=== PATIENT | female | born 1990 | race Caucasian/White ===

== ENCOUNTER 2020-07-26 10:15 | Inpatient (IN) | payer MEDICAID, SELFPAY ==
[~2020-07-26] VITALS: Ht 154.9 cm; Wt 65.8 kg
[2020-07-26 10:15] VITALS: BP_SYST 109
[2020-07-26] MEDS ORDERED: HALOPERIDOL LACTATE 5 MG/ML VIAL IVP ONE (10:30)
[2020-07-26] MEDS ORDERED: MORPHINE 4 MG/ML INJ. SYRINGE IVP ONE (10:30)
[2020-07-26] MEDS ORDERED: NACL 0.9% 2,000 ML IV ONE (11:00)
[2020-07-26 11:15] LABS: BASOPHILS % (AUTO) 0.3 % (0.0-2.0); EOSINOPHILS % (AUTO) 0.1 % (0.0-4.0); HEMATOCRIT 36.6 % (36-48); HEMOGLOBIN 11.7 g/dL (12.0-16.0); LYMPHOCYTES # (AUTO) 0.8 K/uL (1.0-5.5); LYMPHOCYTES % (AUTO) 6.3 % (20.5-51.5); MEAN CORPUSCULAR HEMOGLOBIN 24 pg (27-31); MEAN CORPUSCULAR HGB CONC 32 % (32-36); MEAN CORPUSCULAR VOLUME 74 fL (79.0-98.0); MONOCYTES # (AUTO) 0.5 K/uL (0.0-1.0); MONOCYTES % (AUTO) 3.4 % (1.7-9.3); NEUTROPHILS % (AUTO) 89.9 % (40.0-70.0); PLATELET COUNT (AUTO) 273 K/uL (130-430); RED BLOOD CELL COUNT(AUTO) 4.97 MIL/uL (4.2-6.2); RED CELL DISTRIBUTION WIDTH 17.5 % (9.0-15.0); WHITE BLOOD COUNT (AUTO) 13.4 K/uL (4.8-10.8)
[2020-07-26 11:21] LABS: ANION GAP 10 (5-15); CALCIUM 8.8 mg/dL (8.4-11.0); CHLORIDE 101 mmol/L (98-107); GLUCOSE 148 mg/dL (70-99); POTASSIUM 3.2 mmol/L (3.5-5.1); SODIUM SERUM 137 mmol/L (136-145); UREA NITROGEN, BLOOD 16 mg/dL (8-21)
[2020-07-26 11:22] LABS: GFR AFRICAN AMERICAN 96 mL/min (>90)
[2020-07-26 11:23] LABS: PROTHROMBIN TIME 10.5 SECS (9.5-12.5)
[2020-07-26 11:32] LABS: ALANINE AMINOTRANSFERASE 32 U/L (12-78); ALBUMIN 3.6 g/dL (3.4-4.8); ASPARTATE AMINOTRANSFERASE 19 U/L (10-37); BILIRUBIN,DIRECT 0.1 mg/dL (0.0-0.3); HCG,QUANTITATIVE 1 mIU/ML (0-6); LIPASE 46 U/L (73-393); TOTAL BILIRUBIN 0.5 mg/dL (0.0-1.0)
[2020-07-26 13:33] LABS: BILIRUBIN,URINE NEGATIVE (NEGATIVE); BLOOD, URINE 1+ (NEGATIVE); CLARITY/URINE SL CLOUDY (CLEAR); COLOR,URINE YELLOW (YELLOW); GLUCOSE,URINE NEGATIVE (NEGATIVE); KETONES,URINE 1+ (NEGATIVE); LEUKOCYTE ESTERASE ,URINE 1+ (NEGATIVE); NITRITE, URINE POSITIVE (NEGATIVE); PH,URINE 6.5 (5.0-8.0); PROTEIN URINE TRACE (NEGATIVE)
[2020-07-26 13:53] LABS: BACTERIA,URINE MANY /HPF (None Seen); CALCIUM OXALATE CRYSTALS,UR 0-10 /HPF (None Seen)
[2020-07-26] MEDS ORDERED: cefTRIAXone 1 GM VIAL ONE (13:59)
[2020-07-26] MEDS ORDERED: cefTRIAXone 1 GM in D5W 50 ML IV ONE (14:00)
[2020-07-26] MEDS ORDERED: NACL 0.9% 1,000 ML IV ONE (15:45)
[2020-07-26] MEDS ORDERED: DOXYCYCLINE HYCLATE 100 MG in D5W 100 ML IV ONE (15:45)
[2020-07-26] MEDS ORDERED: metroNIDAZOLE 500 mg/NS 100 ML IV ONE (15:45)
[2020-07-26] MEDS ORDERED: NOREPINEPHRINE BITARTRATE 32 MG in NS 218 ML IV PRN (15:45)
[2020-07-26] MEDS ORDERED: DOXYCYCLINE HYCLATE 100 MG VIAL IV ONE (15:51)
[2020-07-26] MEDS ORDERED: NOREPINEPHRINE 4 MG/4 ML VIAL IV ONE (15:52)
[2020-07-26 16:02] LABS: BARBITURATE, URINE NEGATIVE (NEG <=200); URINE AMPHETAMINE POSITIVE (NEG <=500)
[2020-07-26 16:03] LABS: BENZODIAZEPINE, URINE NEGATIVE (NEG <=150); CANNABINOID, URINE NEGATIVE (NEG <=50); COCAINE, URINE NEGATIVE (NEG <=150); METHAMPHETAMINES SCREEN,URINE POSITIVE (NEG <=500); OPIATE, URINE NEGATIVE (NEG <=100); PHENCYCLIDINE SCREEN,URINE NEGATIVE (NEG <=25); UR TRICYCLIC ANTIDEPRESSANTS NEGATIVE (NEG <=300); URINE METHADONE NEGATIVE (NEG <=200); URINE OXYCODONE SCREEN NEGATIVE (NEG <=100); URINE PROPOXYPHENE SCREEN NEGATIVE (NEG <=300)
[2020-07-26] MEDS: NACL 0.9% 1,000 ML IV SCH (16:47)
[2020-07-26 19:00] VITALS: BP_SYST 94
[2020-07-26 20:00] VITALS: BP_SYST 100
[2020-07-26] MEDS: DOXYCYCLINE HYCLATE 100 MG in D5W 100 ML IV SCH (20:09)
[2020-07-26] MEDS ORDERED: PIPERACILLIN/TAZOBACTAM 4.5 GM/VIAL (ZOSYN) IV ONE (20:11)
[2020-07-26] MEDS: PIPERACILLIN/TAZO 4.5 GM in NS 100 ML IV SCH (20:18)
[2020-07-26 21:00] VITALS: BP_SYST 104
[2020-07-26 22:00] VITALS: BP_SYST 97
[2020-07-26 23:00] VITALS: BP_SYST 89
[2020-07-27] VITALS (7 sets, daily range): BP systolic 90–101
[2020-07-27] MEDS ORDERED: NOREPINEPHRINE 4 MG/4 ML VIAL IV ONE ×2 (01:27→11:52)
[2020-07-27] MEDS: NACL 0.9% 1,000 ML IV SCH ×6 (02:15→22:17)
[2020-07-27 04:54] LABS: BASOPHILS % (AUTO) 0.2 % (0.0-2.0); EOSINOPHILS % (AUTO) 0.1 % (0.0-4.0); HEMATOCRIT 33.8 % (36-48); HEMOGLOBIN 10.6 g/dL (12.0-16.0); LYMPHOCYTES # (AUTO) 1.7 K/uL (1.0-5.5); LYMPHOCYTES % (AUTO) 9.6 % (20.5-51.5); MEAN CORPUSCULAR HEMOGLOBIN 24 pg (27-31); MEAN CORPUSCULAR HGB CONC 31 % (32-36); MEAN CORPUSCULAR VOLUME 75 fL (79.0-98.0); MONOCYTES # (AUTO) 0.9 K/uL (0.0-1.0); MONOCYTES % (AUTO) 5.4 % (1.7-9.3); NEUTROPHILS # (AUTO) 14.8 K/uL (1.8-7.7); NEUTROPHILS % (AUTO) 84.7 % (40.0-70.0); PLATELET COUNT (AUTO) 281 K/uL (130-430); RED CELL DISTRIBUTION WIDTH 17.4 % (9.0-15.0); WHITE BLOOD COUNT (AUTO) 17.5 K/uL (4.8-10.8)
[2020-07-27 05:32] LABS: CALCIUM 7.2 mg/dL (8.4-11.0); CREATININE 0.95 mg/dL (0.55-1.30); POTASSIUM 3.3 mmol/L (3.5-5.1); THYROID STIMULATING HORMONE 2.67 uIu/mL (0.36-3.74)
[2020-07-27] MEDS ORDERED: PIPERACILLIN/TAZOBACTAM 4.5 GM/VIAL (ZOSYN) IV ONE ×3 (06:26→22:25)
[2020-07-27] MEDS: PIPERACILLIN/TAZO 4.5 GM in NS 100 ML IV SCH ×3 (06:26→22:27)
[2020-07-27] MEDS: DOXYCYCLINE HYCLATE 100 MG in D5W 100 ML IV SCH ×2 (10:15→21:23)
[2020-07-27] MEDS ORDERED: NOREPINEPHRINE BITARTRATE 32 MG in D5W 218 ML IV PRN (11:54)
[2020-07-27] MEDS ORDERED: DOXYCYCLINE HYCLATE 100 MG VIAL IV ONE (21:13)
[2020-07-27] MEDS ORDERED: NOREPINEPHRINE BITARTRATE 4 MG in NS 246 ML IV PRN (21:45)
[2020-07-28] MEDS ORDERED: PIPERACILLIN/TAZOBACTAM 4.5 GM/VIAL (ZOSYN) IV ONE (05:53)
[2020-07-28] MEDS: NACL 0.9% 1,000 ML IV SCH ×3 (05:59→17:46)
[2020-07-28] MEDS: PIPERACILLIN/TAZO 4.5 GM in NS 100 ML IV SCH ×3 (06:03→18:20)
[2020-07-28 07:44] LABS: BASOPHILS % (AUTO) 0.2 % (0.0-2.0); EOSINOPHILS % (AUTO) 0.1 % (0.0-4.0); HEMATOCRIT 30.6 % (36-48); HEMOGLOBIN 9.8 g/dL (12.0-16.0); LYMPHOCYTES # (AUTO) 0.7 K/uL (1.0-5.5); LYMPHOCYTES % (AUTO) 5.6 % (20.5-51.5); MEAN CORPUSCULAR HEMOGLOBIN 24 pg (27-31); MEAN CORPUSCULAR HGB CONC 32 % (32-36); MEAN CORPUSCULAR VOLUME 74 fL (79.0-98.0); MONOCYTES # (AUTO) 1.2 K/uL (0.0-1.0); MONOCYTES % (AUTO) 9.6 % (1.7-9.3); NEUTROPHILS # (AUTO) 10.1 K/uL (1.8-7.7); NEUTROPHILS % (AUTO) 84.5 % (40.0-70.0); PLATELET COUNT (AUTO) 187 K/uL (130-430); RED BLOOD CELL COUNT(AUTO) 4.12 MIL/uL (4.2-6.2); RED CELL DISTRIBUTION WIDTH 17.3 % (9.0-15.0)
[2020-07-28 07:48] LABS: CALCIUM 7.4 mg/dL (8.4-11.0); CREATININE 0.83 mg/dL (0.55-1.30); POTASSIUM 3.2 mmol/L (3.5-5.1)
[2020-07-28] MEDS ORDERED: DOXYCYCLINE HYCLATE 100 MG VIAL IV ONE (08:57)
[2020-07-28] MEDS: DOXYCYCLINE HYCLATE 100 MG in D5W 100 ML IV SCH ×2 (10:27→22:10)
[2020-07-28 13:20] VITALS: BP_SYST 104
[2020-07-28 16:00] VITALS: BP_SYST 103
[2020-07-28] MEDS ORDERED: ONDANSETRON HCL 4 MG/2 ML VIAL IVP PRN (16:30)
[2020-07-28] MEDS ORDERED: ACETAMINOPHEN 325 MG TABLET PO PRN ×2 (16:30→18:00)
[2020-07-28 20:30] VITALS: BP_SYST 103
[2020-07-28 23:06] LABS: CHLAMYDIA TRACHOMATIS NAA Negative (Negative); NEISSERIA GONORRHOEAE NAA Negative (Negative)
[2020-07-29] MEDS: NACL 0.9% 1,000 ML IV SCH ×3 (00:06→20:40)
[2020-07-29 02:06] LABS: HEPATITIS A AB, IgM Negative (Negative); HEPATITIS B CORE AB, IgM Negative (Negative); HEPATITIS B SURFACE AG Negative (Negative)
[2020-07-29] MEDS: PIPERACILLIN/TAZO 4.5 GM in NS 100 ML IV SCH ×3 (05:07→21:15)
[2020-07-29] MEDS ORDERED: INSULIN NPH/REGULAR 70-30, 100 UNITS/ML, 10 ML VIAL ONE (05:49)
[2020-07-29] MEDS: DOXYCYCLINE HYCLATE 100 MG in D5W 100 ML IV SCH ×2 (08:10→20:39)
[2020-07-29 08:54] VITALS: BP_SYST 114
[2020-07-29 12:35] VITALS: BP_SYST 107
[2020-07-29 16:23] VITALS: BP_SYST 112
[2020-07-29 20:00] VITALS: BP_SYST 118
[2020-07-29] MEDS ORDERED: MORPHINE 2 MG/ML INJ. SYRINGE IVP PRN (20:45)
[2020-07-29] MEDS: MORPHINE 2 MG/ML INJ. SYRINGE IVP PRN (21:20)
[2020-07-29 23:11] LABS: CHLAMYDIA TRACHOMATIS NAA Negative (Negative); NEISSERIA GONORRHOEAE NAA Negative (Negative)
[2020-07-30 02:00] VITALS: BP_SYST 116
[2020-07-30] MEDS: MORPHINE 2 MG/ML INJ. SYRINGE IVP PRN ×4 (02:14→20:05)
[2020-07-30] MEDS: PIPERACILLIN/TAZO 4.5 GM in NS 100 ML IV SCH ×2 (06:08→13:24)
[2020-07-30 07:04] LABS: BASOPHILS % (AUTO) 0.6 % (0.0-2.0); EOSINOPHILS # (AUTO) 0.1 K/uL (0.0-0.4); HEMATOCRIT 30.9 % (36-48); HEMOGLOBIN 9.9 g/dL (12.0-16.0); LYMPHOCYTES % (AUTO) 17.6 % (20.5-51.5); MEAN CORPUSCULAR HEMOGLOBIN 24 pg (27-31); MEAN CORPUSCULAR HGB CONC 32 % (32-36); MEAN CORPUSCULAR VOLUME 74 fL (79.0-98.0); MONOCYTES # (AUTO) 0.7 K/uL (0.0-1.0); MONOCYTES % (AUTO) 11.3 % (1.7-9.3); NEUTROPHILS # (AUTO) 4.1 K/uL (1.8-7.7); NEUTROPHILS % (AUTO) 68.5 % (40.0-70.0); PLATELET COUNT (AUTO) 219 K/uL (130-430); RED BLOOD CELL COUNT(AUTO) 4.19 MIL/uL (4.2-6.2); RED CELL DISTRIBUTION WIDTH 17.2 % (9.0-15.0)
[2020-07-30 07:57] LABS: CALCIUM 8.4 mg/dL (8.4-11.0); CREATININE 0.61 mg/dL (0.55-1.30); POTASSIUM 3.2 mmol/L (3.5-5.1)
[2020-07-30 08:00] VITALS: BP_SYST 107
[2020-07-30] MEDS: DOXYCYCLINE HYCLATE 100 MG in D5W 100 ML IV SCH ×2 (08:12→19:59)
[2020-07-30] MEDS: NACL 0.9% 1,000 ML IV SCH (11:18)
[2020-07-30 12:25] VITALS: BP_SYST 113
[2020-07-30 16:05] VITALS: BP_SYST 109
[2020-07-30] MEDS ORDERED: POTASSIUM CHLORIDE 20 MEQ TAB.PRT.SR PO ONE (16:45)
[2020-07-30 20:01] VITALS: BP_SYST 110
[2020-07-31] MEDS: PIPERACILLIN/TAZO 4.5 GM in NS 100 ML IV SCH ×4 (00:24→22:15)
[2020-07-31] MEDS: NACL 0.9% 1,000 ML IV SCH ×2 (00:28→14:00)
[2020-07-31] MEDS: MORPHINE 2 MG/ML INJ. SYRINGE IVP PRN ×4 (00:40→22:22)
[2020-07-31 01:19] VITALS: BP_SYST 110
[2020-07-31 07:53] LABS: BASOPHILS % (AUTO) 0.5 % (0.0-2.0); EOSINOPHILS # (AUTO) 0.1 K/uL (0.0-0.4); EOSINOPHILS % (AUTO) 2.3 % (0.0-4.0); HEMATOCRIT 29.2 % (36-48); HEMOGLOBIN 9.6 g/dL (12.0-16.0); LYMPHOCYTES # (AUTO) 1.3 K/uL (1.0-5.5); LYMPHOCYTES % (AUTO) 21.4 % (20.5-51.5); MEAN CORPUSCULAR HEMOGLOBIN 24 pg (27-31); MEAN CORPUSCULAR HGB CONC 33 % (32-36); MEAN CORPUSCULAR VOLUME 73 fL (79.0-98.0); MONOCYTES # (AUTO) 0.8 K/uL (0.0-1.0); MONOCYTES % (AUTO) 13.2 % (1.7-9.3); NEUTROPHILS # (AUTO) 3.8 K/uL (1.8-7.7); NEUTROPHILS % (AUTO) 62.6 % (40.0-70.0); PLATELET COUNT (AUTO) 249 K/uL (130-430); RED CELL DISTRIBUTION WIDTH 16.8 % (9.0-15.0); WHITE BLOOD COUNT (AUTO) 6.1 K/uL (4.8-10.8)
[2020-07-31 08:00] VITALS: BP_SYST 117
[2020-07-31 08:24] LABS: CALCIUM 8.1 mg/dL (8.4-11.0); CREATININE 0.62 mg/dL (0.55-1.30); POTASSIUM 3.7 mmol/L (3.5-5.1)
[2020-07-31] MEDS: DOXYCYCLINE HYCLATE 100 MG CAPSULE PO SCH ×2 (10:34→21:00)
[2020-07-31 12:00] VITALS: BP_SYST 112
[2020-07-31 16:55] VITALS: BP_SYST 107
[2020-08-01 00:54] VITALS: BP_SYST 113
[2020-08-01] MEDS: MORPHINE 2 MG/ML INJ. SYRINGE IVP PRN ×3 (01:46→14:32)
[2020-08-01] MEDS: NACL 0.9% 1,000 ML IV SCH (05:22)
[2020-08-01] MEDS: PIPERACILLIN/TAZO 4.5 GM in NS 100 ML IV SCH ×2 (06:41→14:30)
[2020-08-01 07:51] LABS: BASOPHILS % (AUTO) 0.4 % (0.0-2.0); EOSINOPHILS # (AUTO) 0.2 K/uL (0.0-0.4); EOSINOPHILS % (AUTO) 2.4 % (0.0-4.0); HEMATOCRIT 30.1 % (36-48); HEMOGLOBIN 9.9 g/dL (12.0-16.0); LYMPHOCYTES % (AUTO) 15.8 % (20.5-51.5); MEAN CORPUSCULAR HEMOGLOBIN 24 pg (27-31); MEAN CORPUSCULAR HGB CONC 33 % (32-36); MEAN CORPUSCULAR VOLUME 73 fL (79.0-98.0); MONOCYTES # (AUTO) 0.9 K/uL (0.0-1.0); MONOCYTES % (AUTO) 14.3 % (1.7-9.3); NEUTROPHILS # (AUTO) 4.4 K/uL (1.8-7.7); NEUTROPHILS % (AUTO) 67.1 % (40.0-70.0); PLATELET COUNT (AUTO) 263 K/uL (130-430); RED BLOOD CELL COUNT(AUTO) 4.13 MIL/uL (4.2-6.2); RED CELL DISTRIBUTION WIDTH 16.3 % (9.0-15.0); WHITE BLOOD COUNT (AUTO) 6.5 K/uL (4.8-10.8)
[2020-08-01 08:00] VITALS: BP_SYST 121
[2020-08-01 08:12] LABS: CALCIUM 7.5 mg/dL (8.4-11.0); CREATININE 0.79 mg/dL (0.55-1.30); POTASSIUM 3.8 mmol/L (3.5-5.1)
[2020-08-01] MEDS: DOXYCYCLINE HYCLATE 100 MG CAPSULE PO SCH (11:45)
[2020-08-01 12:00] VITALS: BP_SYST 122
[2020-08-01 16:00] VITALS: BP_SYST 114
[2020-08-01 20:10] VITALS: BP_SYST 114
== END 2020-08-01 21:50 | disposition home or self-care (01) | DRG 871 ==
LOC: SED 10:15 → SIC 16:03 → STU 07-28 12:47 → SMU 07-30 16:29
PROVIDERS: ADMIT Internal Medicine; ATTEND Internal Medicine
DX: A41.9 Sepsis, unspecified organism (principal); R65.21 Severe sepsis with septic shock; N39.0 Urinary tract infection, site not specified; B96.20 Unspecified Escherichia coli [E. coli] as the cause of diseases classified elsewhere; I95.9 Hypotension, unspecified; N73.9 Female pelvic inflammatory disease, unspecified; F19.10 Other psychoactive substance abuse, uncomplicated; Z20.822 Contact with and (suspected) exposure to COVID-19; F15.129 Other stimulant abuse with intoxication, unspecified; N70.93 Salpingitis and oophoritis, unspecified
CPT/HCPCS: 36415; 71045; 76376; 76700-TC; 76856-TC; 80048; 80074; 80076; 80307; 81000-TC; 83605; 83690-TC; 84443-TC; 84484; 84702-TC; 85025; 85610-TC; 86886; 86900; 86901; 87040-TC; 87081-TC; 87086; 87210-TC; 87491; 87591; 93005; 96361; 96365; 96367; 96375; 97116-GP; 99291; G0378; J0696; J1630; J1815; J2270; J2405; J2543; J3490; J7030; J7050; J7060; J7120; Q9967; U0003

== ENCOUNTER 2022-09-04 22:08 | Emergency (ER) | payer MEDICAID ==
[~2022-09-04] VITALS: Ht 154.9 cm; Wt 66.2 kg
[2022-09-04 22:40] VITALS: BP_SYST 118
[2022-09-04] MEDS ORDERED: ALBMDI INH (23:47)
--- NOTE | 2022-09-05 | NUR ---
Patient was offered a hand wrap and bacitracin after suture removal. Patient refused and left.
--- NOTE | 2022-09-05 00:02 | NUR ---
Sutures removed by Dr. Wang Pt DC per MDs order DC instructions given to pt Pt verbalized understandings [id number] VSS Able to make needs known Pt advised to wait in waiting room for clinical social worker so Skilled Nursing placement Pt exited ED in stable gait
== END 2022-09-05 00:01 | disposition home or self-care (01) ==
LOC: SED 22:08
DX: Z48.02 Encounter for removal of sutures (principal); Z76.0 Encounter for issue of repeat prescription; Z79.899 Other long term (current) drug therapy
CPT/HCPCS: 99281

== ENCOUNTER 2024-05-14 09:36 | Emergency (ER) | payer MEDICAID, OTHER ==
[~2024-05-14] VITALS: Ht 154.9 cm; Wt 54.4 kg
[~2024-05-14 09:36] MED LIST: ALBMDI INH
[2024-05-14 09:53] VITALS: BP_SYST 114; PULSE 89; RESP 20; TEMP 97.9; O2SAT 100
[2024-05-14 10:16] LABS: BASOPHILS % (AUTO) 0.2 % (0.0-2.0); EOSINOPHILS # (AUTO) 0.3 K/uL (0.0-0.4); EOSINOPHILS % (AUTO) 4.1 % (0.0-4.0); HEMATOCRIT 34.3 % (36-48); HEMOGLOBIN 11.1 g/dL (12.0-16.0); LYMPHOCYTES # (AUTO) 0.8 K/uL (1.0-5.5); LYMPHOCYTES % (AUTO) 12.6 % (20.5-51.5); MEAN CORPUSCULAR HEMOGLOBIN 25 pg (27-31); MEAN CORPUSCULAR HGB CONC 32 % (32-36); MEAN CORPUSCULAR VOLUME 77 fL (79.0-98.0); MONOCYTES # (AUTO) 0.7 K/uL (0.0-1.0); MONOCYTES % (AUTO) 11.3 % (1.7-9.3); NEUTROPHILS # (AUTO) 4.6 K/uL (1.8-7.7); NEUTROPHILS % (AUTO) 71.8 % (40.0-70.0); PLATELET COUNT (AUTO) 233 K/uL (130-430); RED BLOOD CELL COUNT(AUTO) 4.45 MIL/uL (4.2-6.2); RED CELL DISTRIBUTION WIDTH 17.5 % (9.0-15.0); WHITE BLOOD COUNT (AUTO) 6.5 K/uL (4.8-10.8)
[2024-05-14 10:30] LABS: SERUM HCG (QUALITATIVE) NEGATIVE (NEGATIVE)
[2024-05-14 10:33] LABS: ALBUMIN 2.8 g/dL (3.4-4.8); CALCIUM 8.4 mg/dL (8.4-11.0); CREATININE 0.97 mg/dL (0.55-1.30); POTASSIUM 4.4 mmol/L (3.5-5.1); TOTAL BILIRUBIN 0.2 mg/dL (0.0-1.0); TOTAL PROTEIN, SERUM 6.3 g/dL (6.4-8.3)
[2024-05-14 10:35] LABS: BILIRUBIN,DIRECT 0.1 mg/dL (0.0-0.3)
[2024-05-14] MEDS ORDERED: KETOROLAC TROMETHAMINE 30 MG VIAL IM ONE (10:45)
[2024-05-14 11:04] LABS: ALANINE AMINOTRANSFERASE 17 U/L (12-78); ALBUMIN 2.9 g/dL (3.4-4.8); ASPARTATE AMINOTRANSFERASE 15 U/L (10-37); BILIRUBIN,DIRECT 0.1 mg/dL (0.0-0.3); LIPASE 25 U/L (16-77); TOTAL BILIRUBIN 0.2 mg/dL (0.0-1.0); TOTAL PROTEIN, SERUM 6.3 g/dL (6.4-8.3)
[2024-05-14 11:05] LABS: ALCOHOL, BLOOD < 3 mg/dL (<10)
[2024-05-14 11:15] LABS: BILIRUBIN,URINE NEGATIVE (NEGATIVE); BLOOD, URINE 3+ (NEGATIVE); COLOR,URINE YELLOW (YELLOW); GLUCOSE,URINE NEGATIVE (NEGATIVE); KETONES,URINE NEGATIVE (NEGATIVE); LEUKOCYTE ESTERASE ,URINE 2+ (NEGATIVE); NITRITE, URINE POSITIVE (NEGATIVE); PH,URINE 6.5 (5.0-8.0); PROTEIN URINE NEGATIVE (NEGATIVE); UROBILINOGEN,URINE 0.2 (0.2-1.0)
[2024-05-14] MEDS: KETOROLAC TROMETHAMINE 30 MG VIAL IVP ONE (11:18)
[2024-05-14 11:26] LABS: CLARITY/URINE HAZY (CLEAR)
[2024-05-14 11:38] LABS: BACTERIA,URINE MODERATE /HPF (None Seen); MUCUS,URINE 1+ /LPF (None Seen)
[2024-05-14] MEDS: cefTRIAXone 1 GM IVPB PREMIX 50 ML IV ONE (12:37)
[2024-05-14] MEDS ORDERED: POLY17PO4 PO (12:54)
[2024-05-14] MEDS ORDERED: NITR-85 PO (12:54)
[2024-05-14] MEDS ORDERED: DOCU-144 PO (12:54)
[2024-05-14 13:30] VITALS: BP_SYST 95; PULSE 71; RESP 16; TEMP 98.3; O2SAT 99
[2024-05-14 15:14] LABS: BARBITURATE, URINE NEGATIVE (NEG <=200); BENZODIAZEPINE, URINE NEGATIVE (NEG <=150); CANNABINOID, URINE NEGATIVE (NEG <=50); COCAINE, URINE NEGATIVE (NEG <=150); METHAMPHETAMINES SCREEN,URINE POSITIVE (NEG <=500); OPIATE, URINE NEGATIVE (NEG <=100); PHENCYCLIDINE SCREEN,URINE NEGATIVE (NEG <=25); UR TRICYCLIC ANTIDEPRESSANTS NEGATIVE (NEG <=300); URINE AMPHETAMINE POSITIVE (NEG <=500); URINE METHADONE NEGATIVE (NEG <=200); URINE OXYCODONE SCREEN NEGATIVE (NEG <=100)
== END 2024-05-14 13:30 | disposition home or self-care (01) ==
LOC: SED 09:36
DX: N39.0 Urinary tract infection, site not specified (principal); K59.00 Constipation, unspecified; R11.0 Nausea; R19.7 Diarrhea, unspecified; F17.200 Nicotine dependence, unspecified, uncomplicated; F15.90 Other stimulant use, unspecified, uncomplicated; J45.909 Unspecified asthma, uncomplicated; Z79.899 Other long term (current) drug therapy
CPT/HCPCS: 99285; 74176; 96365; 96375; 80307; 80048; 81001; 84703; 83690; 85025; 87086; 87186; 36415; 80076; G0482; J0696; J1885; 81000; 81015